=== PATIENT | female | born 1955 | race Hispanic/Latino ===

== ENCOUNTER → 2017-10-17 | Outpatient (CLI) | payer SELFPAY ==
[~2017-10-17] MED LIST: GADOBENATE DIMEGLUMINE 20 ML IV ONE
== END | disposition home or self-care (01) ==
LOC: RAH 10:58
PROVIDERS: ATTEND Radiology Radiation Oncology
DX: D35.2 Benign neoplasm of pituitary gland (principal)
CPT/HCPCS: 70553; A9577

== ENCOUNTER → 2018-10-19 | Outpatient (CLI) | payer SELFPAY ==
[~2018-10-19] MED LIST changes: -GADOBENATE DIMEGLUMINE 20 ML IV ONE; +GADODIAMIDE 10 MMOL/20 ML VIAL IV ONE
== END | disposition home or self-care (01) ==
LOC: RAH 07:14
PROVIDERS: ATTEND Radiology Radiation Oncology
DX: D35.2 Benign neoplasm of pituitary gland (principal); J32.8 Other chronic sinusitis; I63.81 Other cerebral infarction due to occlusion or stenosis of small artery; Z98.890 Other specified postprocedural states
CPT/HCPCS: 70553; A9579